=== PATIENT | male | born 1970 | race Caucasian/White ===

== ENCOUNTER 2020-06-30 13:46 | Emergency (ER) | payer OTHER ==
[~2020-06-30 13:46] MED LIST: CYCLOBENZAPRINE5 MG PO; ECOTRIN81 MG PO; GLUCOPHAGE1000 MG PO; IBUPROFEN800 MG PO; PERCOCET 5-3251 EACH PO; PREDNISONE20 MG PO; STEGLATRO15 MG PO; VITAMIN D31250 MCG PO; ZESTORETIC 10-1 EACH PO
[2020-06-30 14:17] LABS: HEMOGLOBIN 17.3 gm/dl (14.0-17.5); RED BLOOD COUNT 6.11 M/UL (4.20-5.50); WHITE BLOOD COUNT 9.9 K/UL (4.5-11.0)
[2020-06-30 14:46] LABS: BUN/CREATININE RATIO 20 (0-10)
== END 2020-06-30 18:38 | disposition home or self-care (01) ==
LOC: ER1 13:46
PROVIDERS: Emergency Medicine
DX: R10.9 Unspecified abdominal pain (principal); N50.811 Right testicular pain; K76.0 Fatty (change of) liver, not elsewhere classified; Z90.49 Acquired absence of other specified parts of digestive tract
CPT/HCPCS: 76870; 80053; 81001; 82150; 83690; 85025; 99284

== ENCOUNTER → 2021-05-27 | Outpatient (CLI) | payer OTHER | LOC: HEART CORB 12:32 | DX: R07.2 Precordial pain (principal); R06.02 Shortness of breath; I10 Essential (primary) hypertension; G47.33 Obstructive sleep apnea (adult) (pediatric) | CPT/HCPCS: 93306 ==

== ENCOUNTER → 2021-08-09 | Day surgery (SDC) | payer OTHER ==
[~2021-08-09] MED LIST changes: +HYDROCHLOROTH12.5 M1 PO; +JANUVIA100 MG PO; +PIOGLITAZONE HC30 MG PO; +ZESTORETIC 20-1 EACH PO; +ZESTRIL 40 MG T40 MG GT
== END | disposition home or self-care (01) ==
LOC: OR 07:09
DX: Z12.11 Encounter for screening for malignant neoplasm of colon (principal); Z80.0 Family history of malignant neoplasm of digestive organs; K57.30 Diverticulosis of large intestine without perforation or abscess without bleeding; I10 Essential (primary) hypertension; G47.33 Obstructive sleep apnea (adult) (pediatric); E11.9 Type 2 diabetes mellitus without complications; Z79.82 Long term (current) use of aspirin; Z87.891 Personal history of nicotine dependence; Z20.822 Contact with and (suspected) exposure to COVID-19
CPT/HCPCS: 82962; J2704; J7030